=== PATIENT | female | born 1980 | race American Indian/Alaskan Native ===

== ENCOUNTER 2021-01-30 22:08 | Emergency (ER) | payer OTHER ==
[2021-01-30] MEDS ORDERED: ALBUTEROL 2.5 MG/3 ML NEBU IH ONE (22:12)
[2021-01-30] MEDS ORDERED: methylPREDNISolone Sod Succinate 125 MG/2 ML INJ IM ONE (22:12)
[2021-01-30] MEDS ORDERED: IPRATROPIUM 0.02% NEBU 2.5 ML IH ONE (22:12)
--- NOTE | 2021-01-30 22:15 | Event Note ---
ED Screening Note Date of service: 01/30/21 Time: 22:14 ED Screening Note: Pt presents acute asthma exacerbation x today This initial assessment/diagnostic orders/clinical plan/treatment(s) is/are subject to change based on patients health status, clinical progression and re- assessment by fellow clinical providers in the ED. Further treatment and workup at subsequent clinical providers discretion. Patient/guardian urged not to elope from the ED as their condition may be serious if not clinically assessed and managed. Initial orders include: cxr neb tx
[2021-01-30 22:18] VITALS: BP 103/70
--- NOTE | 2021-01-30 22:58 | XRay Report ---
CHEST 2 VIEWS INDICATION: shortness of breath. COMPARISON: None. FINDINGS: Support devices: None. Heart: Within normal limits. Lungs/Pleura: No acute air space or interstitial disease. No significant pleural effusion. IMPRESSION: No acute findings. Signer Name: Jeet Lagos MD Signed: 01/30/2021 10:53 PM Workstation Name: [id number]
--- NOTE | 2021-01-30 23:04 | Emergency Department Report ---
ED Shortness of Breath HPI - General Chief Complaint: Adult Asthma Stated Complaint: ASTHMA Time Seen by Provider: 01/30/21 22:11 Source: patient Mode of arrival: Ambulatory Limitations: No Limitations - History of Present Illness Initial Comments: CC: "I just had a bad attack." HPI: This is a 40 yo female with hx of bronchitis, nasal polyps, anxiety, depression who presents with shortness of breath for the past 3 days. Symptoms worsened today. Unknown trigger. Patient has productive cough. Has had intermittent nasal congestion for past several months. No fever. No known sick contacts. Home inhaler did not provide relief. She developed severe bronchitis symptoms when she relocated to [place] from [place]. After moving from [place] to [place], her breathing improved. Her attacks are much milder. Her new PCP has arranged allergy testing in 2 weeks. She also has improved breathing after getting treatment for anxiety and depression. No social stressors. She does suspect that her nasal congestion is triggering her current attack. MD Complaint: shortness of breath, cough -: Gradual, days(s) (3) Severity: severe Consistency: constant Improves With: other (Current nebulizer treatment, in the past prednisone improved symptoms) Known History Of: other (Bronchitis, nasal polyps, sinus congestion) Context: other (Recent fatigue productive cough nasal congestion) Associated Symptoms: denies other symptoms Treatments Prior to Arrival: bronchodilator - Related Data Previous Rx's Medication Instructions Recorded Last Taken Type Albuterol Mdi (or & Nicu Only) 2 puff IH QID PRN #8.5 gram 01/30/21 Unknown Rx [ProAir HFA Inhaler] Azithromycin [Zithromax Z-JOHNATHAN] 250 mg PO DAILY #6 tablet 01/30/21 Unknown Rx Prednisone [predniSONE 10 mg 10 mg PO .TAPER #1 tab.ds.pk 01/30/21 Unknown Rx (6-Day Pack, 21 Tabs)] Allergies Allergy/AdvReac Type Severity Reaction Status Date / Time No Known Allergies Allergy Unverified 01/30/21 22:18 ED Review of Systems ROS: Stated complaint: ASTHMA Other details as noted in HPI Comment: All other systems reviewed and negative Constitutional: denies: fever, malaise ENT: congestion Respiratory: cough, shortness of breath Cardiovascular: denies: chest pain Gastrointestinal: denies: abdominal pain, nausea, vomiting ED Past Medical Hx - Past Medical History Previous Medical History?: Yes Hx Asthma: Yes Additional medical history: Bronchitis. Nasal Polyps - Surgical History Past Surgical History?: No - Social History Smoking Status: Never Smoker Substance Use Type: None - Medications Home Medications: Home Medications Medication Instructions Recorded Confirmed Last Taken Type Albuterol Mdi (or & Nicu Only) 2 puff IH QID PRN #8.5 gram 01/30/21 Unknown Rx [ProAir HFA Inhaler] Azithromycin [Zithromax Z-JOHNATHAN] 250 mg PO DAILY #6 tablet 01/30/21 Unknown Rx Prednisone [predniSONE 10 mg 10 mg PO .TAPER #1 tab.ds.pk 01/30/21 Unknown Rx (6-Day Pack, 21 Tabs)] ED Physical Exam - General Limitations: No Limitations General appearance: alert, in no apparent distress, other (Receiving nebulizer treatment, speaking full word sentences, talkative,) - Head Head exam: Present: atraumatic, normocephalic - Eye Eye exam: Present: normal appearance - ENT ENT exam: Present: mucous membranes moist - Neck Neck exam: Present: normal inspection, full ROM. Absent: meningismus - Respiratory Respiratory exam: Present: normal lung sounds bilaterally. Absent: respiratory distress, wheezes, rales, rhonchi, chest wall tenderness, accessory muscle use, decreased breath sounds, prolonged expiratory - Cardiovascular Cardiovascular Exam: Present: regular rate, normal rhythm. Absent: systolic murmur, diastolic murmur, rubs, gallop - GI/Abdominal GI/Abdominal exam: Present: soft, normal bowel sounds. Absent: distended, tende rness, guarding, rebound - Extremities Exam Extremities exam: Present: normal inspection - Neurological Exam Neurological exam: Present: alert, oriented X3 - Psychiatric Psychiatric exam: Present: normal affect, normal mood - Skin Skin exam: Present: warm, dry, intact, normal color. Absent: rash ED Course Vital Signs 01/30/21 22:10 Temperature 98 F Pulse Rate 98 H Respiratory 22 Rate Blood Pressure 103/70 O2 Sat by Pulse 96 Oximetry - Reevaluation(s) Reevaluation #1: 01/30/21 23:58 Repeat examination, clear breath sounds. Oxygen saturations 100% on room air. No respiratory distress. ED Medical Decision Making - Radiology Data Radiology results: report reviewed CHEST 2 VIEWS INDICATION: shortness of breath. COMPARISON: None. FINDINGS: Support devices: None. Heart: Within normal limits. Lungs/Pleura: No acute air space or interstitial disease. No significant pleural effusion. IMPRESSION: No acute findings. - Medical Decision Making Acute episode of shortness of breath, wheezing, cough. Patient did not have the official diagnosis of asthma. She states that she has recurrent colitis. She improved with albuterol Atrovent nebulizer as well as IM Solu-Medrol. My first exam she had clear breath sounds. On reassessment she had normal lung exam. I have prescribed prednisone taper as well as azithromycin. Azithromycin is indicated for both acute bronchitis and sinusitis due to severe prolonged sym ptoms. Patient has had sinus congestion for over 1 month. Patient is discharged home. Patient has follow-up with her primary physician scheduled this upcoming week. Critical care attestation.: If time is entered above; I have spent that time in minutes in the direct care of this critically ill patient, excluding procedure time. ED Disposition Clinical Impression: Acute bronchitis, Acute sinusitis, History of nasal polyp Disposition: - TO HOME OR SELFCARE Is pt being admited?: No Does the pt Need Aspirin: No Condition: Stable Instructions: Sinusitis, Adult, [id number], Acute Bronchitis, Adult, [id number], Acute Bronchitis (ED) Prescriptions: Prednisone [predniSONE 10 mg (6-Day Pack, 21 Tabs)] 10 mg PO .TAPER #1 tab.ds.pk Albuterol Mdi (or & Nicu Only) [ProAir HFA Inhaler] 2 puff IH QID PRN #8.5 gram PRN Reason: Shortness Of Breath Azithromycin [Zithromax Z-JOHNATHAN] 250 mg PO DAILY #6 tablet
== END 2021-01-31 01:00 | disposition home or self-care (01) ==
LOC: ED 22:08
DX: J20.9 Acute bronchitis, unspecified (principal); J01.90 Acute sinusitis, unspecified; J33.9 Nasal polyp, unspecified; Z79.899 Other long term (current) drug therapy; Z79.2 Long term (current) use of antibiotics
CPT/HCPCS: 71046; 94644; 96372; 99283; J2930